=== PATIENT | male | born 2000 | race Caucasian/White ===

== ENCOUNTER 2021-09-05 13:24 | Emergency (ER) | payer MEDICAID, OTHER ==
[~2021-09-05] VITALS: Ht 172.7 cm; Wt 85.0 kg
[2021-09-05] MEDS ORDERED: KETOROLAC 30MG/ML VIAL IM ONE (13:45)
[2021-09-05 14:49] LABS: CLARITY URINE CLEAR (CLEAR); COLOR URINE YELLOW (YELLOW); KETONES URINE NEGATIVE (NEGATIVE); LEUKOCYTE ESTERASE URINE NEGATIVE (NEGATIVE); NITRITE URINE NEGATIVE (NEGATIVE); OCCULT BLOOD URINE NEGATIVE (NEGATIVE); PH URINE 6.5 (4.5-8.0); PROTEIN URINE TRACE (NEGATIVE); SPECIFIC GRAVITY URINE 1.029 (1.005-1.030); UROBILINOGEN URINE 0.2 E.U./dL (0.2-1.0)
[2021-09-05] MEDS ORDERED: MED4 MT (15:13)
[2021-09-05] MEDS ORDERED: T3 PO (15:13)
[2021-09-05 15:20] VITALS: BP 131/73
== END 2021-09-05 15:21 | disposition home or self-care (01) ==
LOC: ER 13:24
DX: M54.50 Low back pain, unspecified (principal); M62.838 Other muscle spasm
CPT/HCPCS: 81003; 96372; 99283; J1885